=== PATIENT | male | born 1965 | race Two or more races ===

== ENCOUNTER 2023-01-26 18:15 | Emergency (ER) | payer OTHER ==
[~2023-01-26] VITALS: Ht 193 cm; Wt 131.5 kg
[~2023-01-26 18:15] MED LIST: AVALIDE 150-12.1 TA1
[2023-01-26 21:22] LABS: HEMATOCRIT 39.9 % (39.0-48.0); HEMOGLOBIN 13.8 g/dL (13-16.00); MEAN CELL VOLUME 92.7 fL (80.0-100.00); MEAN CORPUSCULAR HGB CONC 34.5 g/dl (32.0-36.0); PLATELET COUNT 224 K/uL (150-450); RED CELL DISTRIBUTION WIDTH 14.1 % (11.5-14.5)
[2023-01-26] MEDS ORDERED: AMOX-CLAV 875-1 EAC1 PO (22:16)
== END 2023-01-26 22:30 | disposition home or self-care (01) ==
LOC: ER 18:15
PROVIDERS: Nurse Practitioner Family
DX: R50.9 Fever, unspecified (principal); I10 Essential (primary) hypertension; Z20.822 Contact with and (suspected) exposure to COVID-19

== ENCOUNTER 2023-12-23 09:38 | Emergency (ER) | payer OTHER ==
[~2023-12-23] VITALS: Ht 198.1 cm; Wt 158.8 kg
[~2023-12-23 09:38] MED LIST changes: +AMOX-CLAV 875-1 EAC1 PO
[2023-12-23 09:44] VITALS: BP 131/82; O2SAT 100
[2023-12-23] MEDS ORDERED: KETOROLAC TROMETHAMINE 60 MG VIAL IM ONE ×2 (11:11→11:15)
[2023-12-23] MEDS ORDERED: KETO10TA2 PO (12:00)
== END 2023-12-23 12:04 | disposition home or self-care (01) ==
LOC: ER 09:39
DX: M79.672 Pain in left foot (principal); M77.32 Calcaneal spur, left foot

== ENCOUNTER 2024-09-27 08:21 | Emergency (ER) | payer OTHER ==
[~2024-09-27] VITALS: Ht 198.1 cm; Wt 157.9 kg
[~2024-09-27 08:21] MED LIST changes: +KETO10TA2 PO
[2024-09-27 10:36] LABS: BASO % 0.6 % (0.1-1.2); EOS # 0.25 (0.04-0.54); EOS % 2.2 % (0.7-7.0); HEMOGLOBIN 13.4 g/dL (13.7-17.5); LYMPH # 2.43 (1.18-3.74); LYMPH % 21.6 % (19.3-53.1); MEAN CORPUSCULAR HEMOGLOBIN 31.1 pg (25.6-32.2); MONO # 1.08 (0.24-0.82); MONO % 9.6 % (4.7-12.5); NEUT # 7.36 (1.56-6.13); NEUT % 65.6 % (34.0-71.1); PLATELET COUNT 267 K/uL (163-369); RED BLOOD COUNT 4.31 M/uL (4.63-6.08); RED CELL DISTRIBUTION WIDTH 13.2 % (11.6-14.4)
[2024-09-27 10:45] LABS: COVID-19 AG NEGATIVE (NEGATIVE)
[2024-09-27 10:46] LABS: INFLUENZA A AG NEGATIVE (NEGATIVE); INFLUENZA B AG NEGATIVE (NEGATIVE)
[2024-09-27] MEDS ORDERED: ZITHROMAX500 MG PO (11:03)
[2024-09-27] MEDS ORDERED: GENTAMICIN SULFA5 ML OP (11:03)
== END 2024-09-27 11:42 | disposition home or self-care (01) ==
LOC: ER 08:30
PROVIDERS: Emergency Medicine
DX: A49.3 Mycoplasma infection, unspecified site (principal); H10.9 Unspecified conjunctivitis; Z20.822 Contact with and (suspected) exposure to COVID-19; I10 Essential (primary) hypertension